=== PATIENT | male | born 1935 | race Caucasian/White ===

== ENCOUNTER 2018-05-27 15:34 | Emergency (ER) | payer MEDICARE, BC ==
[~2018-05-27] VITALS: Ht 185.4 cm; Wt 113.6 kg
[2018-05-27 15:38] VITALS: TEMP 97.7
[2018-05-27 16:03] LABS: BASO % 0.4 % (0.0-2.0); EOS % 0.2 % (0-4.0); GRAN # 4.6 (1.4-6.5); GRAN % 83.6 % (42.2-75.2); HEMATOCRIT 49.7 % (42.0-52.0); LYMPH # 0.8 (1.2-3.4); MEAN CELL VOLUME 101 fl (80.0-100.0); MEAN CORPUSCULAR HEMOGLOBIN 33 pg (27.0-31.0); MEAN CORPUSCULAR HGB CONC 32 g/dl (33.0-37.0); MEAN PLATELET VOLUME 10.4 fl (7.4-10.4); MONO # 0.1 (0.1-0.6); MONO % 1.6 % (1.7-9.3); PLATELET COUNT 220 K/mm3 (130-400); RED BLOOD COUNT 4.91 M/mm3 (4.20-5.60); REDCELL DISTRIBUTION WIDTH-CV 13.3 % (11.5-14.5)
[2018-05-27 16:07] LABS: PROTHROMBIN TIME 11.4 SECONDS (9.7-12.8)
[2018-05-27 16:09] LABS: ALBUMIN 3.9 gm/dL (3.5-5.0); BILIRUBIN,TOTAL 0.9 mg/dL (0.0-1.0); CALCIUM 8.6 mg/dL (8.4-10.2); CREATININE, serum 1.62 mg/dL (0.66-1.25); POTASSIUM 3.8 mmol/L (3.4-5.0); TOTAL PROTEIN 7.7 gm/dL (6.4-8.2)
[2018-05-27 16:17] LABS: MUCOUS Present /lpf; PH 5 (5-8); SQUAMOUS EPITHELIAL 0-2 /hpf; URINE APPEARANCE Hazy; URINE BACTERIA None Seen /hpf; URINE BILIRUBIN Negative (NEGATIVE); URINE BLOOD Negative (NEGATIVE); URINE COLOR Yellow; URINE GLUCOSE Negative (NEGATIVE); URINE KETONE Negative (NEGATIVE); URINE LEUKOCYTE ESTERASE Negative (NEGATIVE); URINE NITRATE Negative (NEGATIVE); URINE PROTEIN(semi-quant) 2+ (NEGATIVE); URINE RBC 0-2 /hpf; URINE UROBILINOGEN Negative (NEGATIVE); URINE WBC 0-2 /hpf
[2018-05-27 16:32] LABS: TROPONIN-I 0.045 ng/mL (0.000-0.035)
[2018-05-27 16:32] LABS: COLLECTION METHOD CATHETER
[2018-05-27 16:34] VITALS: BP 102/59; PULSE 87
[2018-05-27 16:36] LABS: ARTERIAL BLD GAS TCO2 CT 22.1; ARTERIAL BLOOD GAS BASE EXCESS -6.7 (-2-2); ARTERIAL BLOOD GAS HCO3 20.7 meq/L (22-26); ARTERIAL BLOOD GAS PO2 86.5 mmHg (80-100); ARTERIAL BLOOD GAS pH 7.25 (7.35-7.45)
--- NOTE | 2018-05-27 17:06 | NUR ---
RADHA met patient's family in ED to provide support after updated them on patient's condition. Patient is being flown to [facility] via [facility]. SW was present when family was able to see patient and while Tongsman was there as well.
--- NOTE | 2018-05-27 17:11 | NUR ---
I received a call from the ER possible lauryn valencia requesting a staff engineer. [employer] Chari was not here so they called me. By the time I got here the patient was stabilized and prepped to go to [facility]. I prayed with the family before they left and provided spiritual care.
== END 2018-05-27 17:10 | disposition short-term general hospital (02) ==
LOC: COL.ER 15:34
PROVIDERS: Emergency Medicine
DX: J96.01 Acute respiratory failure with hypoxia (principal); I95.9 Hypotension, unspecified; J81.1 Chronic pulmonary edema; I25.10 Atherosclerotic heart disease of native coronary artery without angina pectoris; I50.9 Heart failure, unspecified; I48.91 Unspecified atrial fibrillation; I10 Essential (primary) hypertension; E66.9 Obesity, unspecified; J44.9 Chronic obstructive pulmonary disease, unspecified; Z95.1 Presence of aortocoronary bypass graft; Z86.73 Personal history of transient ischemic attack (TIA), and cerebral infarction without residual deficits; Z79.82 Long term (current) use of aspirin; Z68.33 Body mass index [BMI] 33.0-33.9, adult
CPT/HCPCS: J0171; J0330; J0692; J7050; J7060; Q9967